=== PATIENT | female | born 1935 | race Caucasian/White ===

== ENCOUNTER 2017-03-28 14:25 | Inpatient (IN) | payer MEDICARE ==
[~2017-03-28] VITALS: Ht 154.9 cm; Wt 50.9 kg
[2017-03-28 15:35] LABS: BASO # 0.1 x10^3/uL (0.0-0.2); BASO % 1 % (0-3); EOS # 0.2 x10^3/uL (0.0-0.7); EOS % 2 % (0-3); HEMATOCRIT 31.1 % (36.0-47.0); HEMOGLOBIN 10.3 g/dL (12.0-15.5); LYMPH # 1.4 x10^3/uL (1.0-4.8); LYMPH % 16 % (24-48); MEAN CORPUSCULAR HEMOGLOBIN 30 pg (25-35); MEAN CORPUSCULAR HGB CONC 33 g/dL (31-37); MEAN CORPUSCULAR VOLUME 92 fL (79-100); MONO # 0.6 x10^3/uL (0.0-1.1); MONO % 7 % (0-9); NEUT # 6.6 x10^3uL (1.8-7.7); NEUT % 75 % (31-73); PLATELET COUNT 208 x10^3/uL (140-400); RED CELL DISTRIBUTION WIDTH 15.3 % (11.5-14.5); WHITE BLOOD COUNT 8.9 x10^3/uL (4.0-11.0)
--- NOTE | 2017-03-28 15:37 | PHYS DOC ---
Past History Past Medical History: A-Fib, CHF, CVA, Hypertension Past Surgical History: Other Alcohol Use: None Drug Use: None Adult General Chief Complaint Chief Complaint: MULTIPLE COMPLAINTS HPI HPI Patient is a 81-year-old female in by family from her [facility] for evaluation of left-sided head pain status post fall. Sounds as if this was a mechanical fall as patient says that they were trying to walk her with the could not keep grasp her and she fell straight forward into a doorway. She has contusion and abrasion to left gnosticist and says that she has pain there were some headache but she denies any neck pain chest pain abdominal pain back pain or extremity pain. Says that she had a tetanus shot 2 years ago. Patient is in the [facility] and she had a stroke 4 weeks ago and has left-sided weakness in addition she had a TIA 2 weeks ago. Patient is very dissatisfied with the care at the [facility]dc she has had and is going to take her home and they are setting up home health. They're mostly concerned with the head trauma and possible intracranial hemorrhage. She was on blood thinners but they say they have since stopped it since she was having a small bleed on her last head CT. Review of Systems Review of Systems Constitutional: Denies fever or chills [] Eyes: Denies change in visual acuity, redness, or eye pain [] HENT: Denies nasal congestion or sore throat [] Respiratory: Denies cough or shortness of breath [] Cardiovascular: No additional information not addressed in HPI [] GI: Denies abdominal pain, nausea, vomiting, bloody stools or diarrhea [] : Denies dysuria or hematuria [] Musculoskeletal: Denies back pain or joint pain [] Integument: + abrasion Neurologic: + headache. No new focal weakness or sensory changes [] Physical Exam Physical Exam Constitutional: Well developed, well nourished, no acute distress, non-toxic appearance. [] HENT: Normocephalic, left gnosticist abrasion and contusion with no open wounds. Eyes: PERRLA, EOMI, conjunctiva normal, no discharge. [] Neck: Normal range of motion, no tenderness, supple, no stridor. [] Cardiovascular:Heart rate regular rhythm, no murmur [] Lungs & Thorax: Bilateral breath sounds clear to auscultation [] Abdomen: Bowel sounds normal, soft, no tenderness, no masses, no pulsatile masses. [] Skin: Warm, dry, no erythema, no rash. [] Back: No tenderness, no CVA tenderness. [] Extremities: No tenderness, no cyanosis, no clubbing, ROM intact, no edema. [] Neurologic: Alert and oriented X 3. Baseline neuro deficits noted, no new deficits per patient and family, Current Patient Data Vital Signs Vital Signs Date Time Temp Pulse Resp B/P (MAP) Pulse Ox O2 Delivery O2 Flow Rate FiO2 03/28/17 15:04 98.8 62 24 2 Room Air EKG EKG Sinus rhythm at 56 beats per minutes with leftward axis no obvious ST elevation but there is inverted T waves in leads 23 aVF and V2 through V6. Radiology/Procedures Radiology/Procedures [] Course & Med Decision Making Course & Med Decision Making Patient reportedly has a history of congestive heart failure and she is slightly hypoxic at 89%. Family reports that she has been on 1-2 L at night past week at the fdc. Patient is hopefully going to go home however I cannot sit up all of her home needs including oxygen so she'll be admitted for further observation and treatment. Does have an elevated BNP so she'll be given a dose of Lasix and she will likely need a repeat head CT tomorrow to make sure that her brain bleeding is not getting worse. I suspect this is unrelated to her trauma as it is the opposite side and it is an intraventricular bleed rather than a subdural hematoma. Patient clinically looks well but she will be admitted for further observation and treatment for these to major medical issues. Dragon Disclaimer Dragon Disclaimer This chart was dictated in whole or in part using Voice Recognition software in a busy, high-work load, and often noisy Emergency Department environment. It may contain unintended and wholly unrecognized errors or omissions. Departure Departure: Impression: Primary Impression: Intraventricular hemorrhage Additional Impressions: CHF exacerbation Periorbital hematoma of left eye Disposition: ADMITTED INPATIENT Admitting Physician: Stacey Burks Condition: STABLE Referrals: CHERELLE HOWARD DO (PCP) Problem Qualifiers TUCKER BETANOCURT DO Mar 28, 2017 15:37
[2017-03-28] MEDS ORDERED: AMLO10TA2 PO (15:48)
[2017-03-28] MEDS ORDERED: ACET325T9 PO (15:48)
[2017-03-28] MEDS ORDERED: PANT40TA3 PO (15:48)
[2017-03-28] MEDS ORDERED: GABA-585 PO (15:48)
[2017-03-28] MEDS ORDERED: BISA10SU2 RC (15:48)
[2017-03-28] MEDS ORDERED: ASPI81TA50 PO (15:48)
[2017-03-28] MEDS ORDERED: ISOS30TA4 PO (15:48)
[2017-03-28] MEDS ORDERED: LOPE2CAP PO (15:48)
[2017-03-28] MEDS ORDERED: METO25TA9 PO (15:48)
[2017-03-28] MEDS ORDERED: CLON0.5T3 PO (15:48)
[2017-03-28 15:53] LABS: ALBUMIN 2.9 g/dL (3.4-5.0); ALBUMIN/GLOBULIN RATIO 0.9 (1.0-1.7); CALCIUM 8.5 mg/dL (8.5-10.1); CREATININE 1.6 mg/dL (0.6-1.0); GFR 30.8; MAGNESIUM 1.6 mg/dL (1.8-2.4); TOTAL BILIRUBIN 0.9 mg/dL (0.2-1.0); TOTAL PROTEIN 6.1 g/dL (6.4-8.2)
--- NOTE | 2017-03-28 15:53 | RAD ---
Exam performed: One view chest. Indication: Shortness of air, fall today Date of Service: 03/28/2017 5:12 PM Comparison: None available. Single AP upright portable view chest findings: Cardiomediastinal silhouette is within upper limits of normal. Abdomen is calcification of the aortic knob. Opacity left lung base obscuring the left hemidiaphragm with streaky linear opacities in the right lung base. The bony structures are normal. Impression: Hazy opacity left lung base obscuring the left hemidiaphragm with streaky right basilar opacity. Findings may be related to infiltrates or atelectasis. Follow-up exams may be of additional benefit.
--- NOTE | 2017-03-28 16:08 | RAD ---
Exam performed: CT head and cervical spine. History: Fall today, bruising over left eye. Date of service: 03/28/17. Comparison: CT head without contrast from 02/23/17 MRI brain on 03/02/17 Technique: Contiguous helical acquisitions are obtained from the foramen magnum to the vertex without IV contrast. In addition helical acquisitions also obtained through the cervical spine. Sagittal and coronal reformatted images are obtained and reviewed. CT head findings: Areas of increased attenuation is seen within the generalized area of low-attenuation in the right subcortical deep white matter. Prominence of cortical sulci and ventricular system is noted consistent with age related atrophy. There are diffuse areas of low-attenuation in both periventricular and subcortical deep white matter. Symmetric bifrontal subdural hygroma. Visualized portions of the orbits, paranasal sinuses and the mastoid air cells are clear. Impression: 1. Age related atrophy. Areas of low-attenuation in both periventricular and subcortical deep white matter suggesting small vessel ischemic changes. 2. Areas of ill-defined hyperattenuation in a generalized area of low-attenuation in the right temporoparietal region. Reportedly patient had a CT scan subsequent to her original CT scan in February at a different facility which demonstrated hemorrhagic transformation of this stroke. Unfortunately that study is not available for comparison and review, however the findings correlate. This does not appear to be acute hemorrhage related to trauma. Follow-up exam may be of additional benefit. Results discussed with Dr. Spann in the ER soon after completion of the study. End impression CT cervical spine findings: Straightening of the cervical curvature. The vertebral body heights are maintained. There is narrowing of C3/4, C5/6 and C6/7 intervertebral disc spaces with mild osteophytic spurring. No acute compression fracture. No prevertebral soft tissue swelling. The airway is preserved. There are no acute fractures. Atheromatous calcification of the left carotid artery is seen. Impression: Spondylotic changes and multilevel degenerative disc disease. No acute abnormality seen. PQRS Compliance Statement: One or more of the following individualized dose reduction techniques were utilized for this examination: 1. Automated exposure control 2. Adjustment of the mA and/or kV according to patient size 3. Use of iterative reconstruction technique
[2017-03-28] MEDS ORDERED: FUROSEMIDE 40 MG/4 ML VIAL IVP ONE (17:00)
[2017-03-28] MEDS ORDERED: ONDANSETRON PF 4 MG/2 ML VIAL. IV PRN (17:00)
--- NOTE | 2017-03-28 17:02 | EKG ---
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
[2017-03-28 19:00] VITALS: BP 149/75
[2017-03-28 22:25] LABS: CLARITY,URINE CLOUDY; COLOR,URINE YELLOW
[2017-03-28 22:27] LABS: BILIRUBIN,URINE NEG (NEG); GLUCOSE,URINE NEG (NEG); UROBILINOGEN,URINE 0.2 mg/dL (0.2 mg/dL)
[2017-03-28 22:28] LABS: NITRITE,URINE NEG (NEG)
[2017-03-28 22:36] LABS: BACTERIA,URINE 0 /HPF (0-FEW); SQUAMOUS EPITHELIAL CELL,UR FEW /LPF; WBC,URINE 20-40 /HPF (0-4)
[2017-03-28 23:00] VITALS: BP 165/77
[2017-03-28] MEDS ORDERED: ACETAMINOPHEN 325 MG TABLET PO PRN (23:15)
[2017-03-29 04:00] VITALS: BP 134/49
[2017-03-29 06:00] VITALS: BP 132/65
--- NOTE | 2017-03-29 06:02 | ACF ---
Admission Criteria Forms HEART FAILURE Clinical Indications for Admission to Inpatient Care (Place 'X' for any and all applicable criteria): Admission to inpatient status for two midnights or more is indicated by ANY ONE of the following(1)(2)(3)(4) [ ]I. Hemodynamic instability [ ]II. Severe electrolyte abnormalities requiring inpatient care(9) [ ]III. Cardiac arrhythmias of immediate concern Anasarca [ ]IV. Precipitating cause for acute decompensation (eg, pneumonia, pulmonary embolism)[ ]V. [ ]V. Acute cardiac ischemia causing or associated with failure (Also use Angina or Myocardial Infarction as appropriate) [ ]. Pulmonary edema that is very severe (eg, mechanical ventilation needed, imminent or likely, need for 100% oxygen to keep oxygen saturation above 90%) [ ]VII. Massive skin edema (anasarca) with complications (eg tissue breakdown with infection, inability to void due to edema) [A] [X]VIII. Inpatient admission required rather than observation care (See Heart Failure: Observation Care as appropriate) because of 1 or more of the following: [ ]a) Pulmonary edema that is severe or worsening as indicated by ALL of the following : [ ]1) New need for oxygen therapy to keep oxygen saturation above 90% (or increased FiO2 need from baseline) [ ]2) Has not improved sufficiently with emergency department or observation care IV diuretics or other heart failure treatments[C] [ ]b) Altered mental status that is severe or persistent [ ]c) Increased creatinine (new on laboratory test) with reduction of more than 50% in estimated glomerular filtration rate from baseline. [ ]d) Progressively (ongoing) rising creatinine (known from past laboratory test) with reduction of more than 25% in estimated glomerular filtration rate from baseline [ ]e) Acute renal insufficiency (progressively (ongoing) rising creatinine (known from past laboratory test) with reduction of more than 25% in estimated glomerular filtration rate from baseline [ ]f) Acute renal failure [ ]g) Acute peripheral ischemia (e.g., examination shows pulseless, cool, mottled, or cyanotic extremity) [X]h) Oyxgen administration or respiratory treatments have been needed for over 24 hours that are performable only in acute inpatient setting [ ]i) Pulmonary artery catheter monitoring [ ]j) Other condition, treatment or monitoring requiring inpatient admission Extended stay beyond goal length of stay may be needed for(1)(3)(21)(25): [ ]a) Cardiac ischemia, confirmed or suspected as precipitant [ ]b) Cardiogenic shock [ ]c) Acute renal failure [ ]d) Stage IV chronic kidney disease (estimated glomerular filteration rate of less than 30 ML/min/1.73m2 (0.50 mL/sec/1.73m2), and not previously on chronic dialysis [ ]e) Respiratory failure (eg, need for noninvasive or invasive mechanical ventilation) (23) [ ]f) Concomitant pneumonia or significant electrolyte abnormality (eg, severe hyponatremia) [ ]g) Newly diagnosed (new onset) atrial fibrillation The original [employer] content created by [employer] has been revised. The portions of the content which have been revised are identified through the use of italic text, and [employer] has neither reviewed nor approved the modified material. All other unmodified content is copyright [employer]. Please see references footnoted in the original [facility] edition 2014 Admission Criteria Met?: Yes JOSEFINA ROYAL Mar 29, 2017 06:02
[2017-03-29 06:13] LABS: BASO # 0.1 x10^3/uL (0.0-0.2); BASO % 1 % (0-3); EOS # 0.4 x10^3/uL (0.0-0.7); EOS % 6 % (0-3); HEMATOCRIT 31.5 % (36.0-47.0); HEMOGLOBIN 10.3 g/dL (12.0-15.5); LYMPH # 1.9 x10^3/uL (1.0-4.8); LYMPH % 27 % (24-48); MEAN CORPUSCULAR HEMOGLOBIN 30 pg (25-35); MEAN CORPUSCULAR HGB CONC 33 g/dL (31-37); MEAN CORPUSCULAR VOLUME 92 fL (79-100); MONO # 0.6 x10^3/uL (0.0-1.1); MONO % 8 % (0-9); NEUT # 4.1 x10^3uL (1.8-7.7); NEUT % 58 % (31-73); PLATELET COUNT 195 x10^3/uL (140-400); RED BLOOD COUNT 3.43 x10^6/uL (3.50-5.40); RED CELL DISTRIBUTION WIDTH 14.9 % (11.5-14.5)
[2017-03-29 06:29] LABS: CALCIUM 8.3 mg/dL (8.5-10.1); CREATININE 1.4 mg/dL (0.6-1.0); GFR 35.9; POTASSIUM 3.8 mmol/L (3.5-5.1)
[2017-03-29 06:59] VITALS: BP 138/59
[2017-03-29] MEDS ORDERED: MAGNESIUM SULFATE 2GM 50 ML IV ONE (08:40)
[2017-03-29] MEDS ORDERED: IV NORMAL SALINE 50ML 50 ML ONE ×2 (08:50→08:51)
[2017-03-29 10:43] VITALS: BP 158/72
--- NOTE | 2017-03-29 11:44 | RAD ---
CT of the head without contrast, 03/29/2017: History: Follow-up hemorrhage Comparison is made to a study 02/23/2017 and 03/28/2017. On the 02/23/2017 study there was an edematous process in the medial right temporal and occipital lobes compatible with edema due to a recent infarct. Yesterday's study demonstrated patchy areas of increased density within this process compatible with interval areas of hemorrhage within this presumed infarct. Today's study is unchanged from yesterday's exam. There is no shift of the midline structures. There are mild patchy deep white matter lucencies compatible with chronic ischemic change. There is moderate cerebral atrophy. No abnormal extra-axial fluid collection is seen. IMPRESSION: 1. Patchy increased density within the right temporal/occipital lobe subacute infarct compatible with hemorrhagic transformation. This is stable compared to yesterday's exam. 2. No new intracranial abnormality is detected. PQRS Compliance Statement: One or more of the following individualized dose reduction techniques were utilized for this examination: 1. Automated exposure control 2. Adjustment of the mA and/or kV according to patient size 3. Use of iterative reconstruction technique
[2017-03-29] MEDS ORDERED: BISACODYL 10 MG SUPP.RECT RC PRN (12:45)
[2017-03-29] MEDS ORDERED: LOPERAMIDE 2 MG CAPSULE PO PRN (12:45)
[2017-03-29] MEDS ORDERED: ISOSORBIDE MONONITRATE ER 30 MG TAB.ER.24H PO SCH (13:00)
[2017-03-29] MEDS ORDERED: amLODIPine BESYLATE 10 MG TABLET PO SCH (13:00)
[2017-03-29] MEDS ORDERED: PANTOPRAZOLE 40 MG TABLET. PO SCH (13:00)
[2017-03-29] MEDS ORDERED: clonazePAM 0.5 MG TABLET PO SCH (13:00)
[2017-03-29] MEDS ORDERED: ASPIRIN ENTERIC COATED 81 MG TABLET.DR. PO SCH (13:00)
[2017-03-29] MEDS ORDERED: METOPROLOL SUCC 24HR ER 25 MG TAB.ER.24H. PO SCH (13:00)
--- NOTE | 2017-03-29 13:18 | RAD ---
Portable chest, 03/29/2017: History: Shortness of breath Comparison is made to a study from 03/28/2017. The heart is mildly enlarged. There is calcific plaquing of the aorta. The pulmonary vascularity is normal. Blunting of the lateral costophrenic angles has worsened slightly, compatible with small pleural effusions, left greater than right. There is mild underlying basilar atelectasis. The upper lung stout are clear. IMPRESSION: 1. Mild cardiomegaly and aortic atherosclerosis. 2. Small pleural effusions, left greater than right.
--- NOTE | 2017-03-29 13:34 | PDOC2 ---
CONSULT Date of Admission DATE: 03/29/17 TIME: 13:30 Reason for Consult: Congestive heart failure. Referring Physician: Ольга Ugalde DO Chief Complaint We were consulted for possible CHF. Source: Chart review, Patient Problem List Problems Medical Problems: (1) CHF exacerbation Status: Acute (2) Intraventricular hemorrhage Status: Acute (3) Periorbital hematoma of left eye Status: Acute History of Present Illness The patient is an 81-year-old female with a history of paroxysmal atrial fibrillation that seems to have been 1st diagnosed in February 2017 when she was at [facility] with a hemorrhagic stroke. It seems that after the stroke she had been discharged to home and then came back a different day for an outpatient transesophageal echocardiogram and cardioversion. It does not seem she has seen Cardiology since that time. She has been residing in a local long term for skilled rehab. Apparently, she had fallen in her room. Somehow her son found out about this incident and thought that the staff dropped his mother. He called 911 and the patient was taken to the emergency room for further evaluation. She was actually supposed to see 1 of my partners in our office in 2 weeks. Because of an elevated BNP level and a question of congestive heart failure, a cardiology consultation was requested. She does not really seem to remember what led up to this particular hospitalization. She knows that she was on a blood thinner in the past but states this caused nausea and the medication was discontinued. She denies chest pain, dyspnea, paroxysmal nocturnal dyspnea, orthopnea, palpitations, lightheadedness, syncope or lower extremity edema Cardiovascular: AFIB, CHF, HTN, hyperipidemia CENTRAL NERVOUS SYSTEM: CVA GI: GERD Family History She does not know of any family history of premature coronary disease. Smoke: No ALCOHOL: none Lives: Long-Term Current Medications Current Medications Ondansetron HCl (Zofran) 4 mg PRN Q4HRS PRN IV NAUSEA/VOMITING Last administered on 03/28/17 17:06; Start 03/28/17 at 17:00; Stop 03/29/17 at 16:59 Furosemide (Lasix) 20 mg 1X ONCE IVP Last administered on 03/28/17 17:04; Start 03/28/17 at 17:00; Stop 03/28/17 at 17:01; Status DC Acetaminophen (Tylenol) 325 mg PRN Q4HRS PRN PO MILD PAIN Last administered on 03/28/17 23:28; Start 03/28/17 at 23:15 Magnesium Sulfate 50 ml @ 25 mls/hr 1X ONCE IV Last administered on 03/29/17 08:54; Start 03/29/17 at 08:40; Stop 03/29/17 at 10:39; Status DC Ceftriaxone Sodium 1 gm/ Sodium Chloride 50 ml @ 100 mls/hr Q24H IV Last administered on 03/29/17 10:55; Start 03/29/17 at 09:00 Sodium Chloride 50 ml @ As Directed STK-MED ONCE .ROUTE Last administered on 08:53; Start 03/29/17 at 08:50; Stop 03/29/17 at 08:51; Status DC Sodium Chloride 50 ml @ As Directed STK-MED ONCE .ROUTE ; Start 03/29/17 at 08: 51; Stop 03/29/17 at 08:52; Status DC Amlodipine Besylate (Norvasc) 10 mg DAILY PO ; Start 03/29/17 at 13:00 Aspirin (Aspirin Enteric Coated) 81 mg DAILY PO ; Start 03/29/17 at 13:00 Bisacodyl (Dulcolax Supp) 10 mg PRN DAILY PRN RC CONSTIPATION; Start 03/29/17 at 12:45 Clonazepam (KlonoPIN) 0.5 mg DAILY PO ; Start 03/29/17 at 13:00 Gabapentin (Neurontin) 100 mg TID PO ; Start 03/29/17 at 14:00 Isosorbide Mononitrate (Imdur) 30 mg DAILY PO ; Start 03/29/17 at 13:00 Loperamide HCl (Imodium) 2 mg PRN Q2HR PRN PO DIARRHEA; Start 03/29/17 at 12:45 Metoprolol Succinate (Toprol Xl) 25 mg DAILY PO ; Start 03/29/17 at 13:00 Pantoprazole Sodium (Protonix) 40 mg DAILY PO ; Start 03/29/17 at 13:00 Active Scripts Active Reported Tylenol (Acetaminophen) 325 Mg Tablet 1 Tab PO PRN Q4HRS Loperamide (Loperamide Hcl) 2 Mg Capsule 2 Mg PO Amlodipine Besylate 10 Mg Tablet 1 Tab PO DAILY Isosorbide Mononitrate Er (Isosorbide Mononitrate) 30 Mg Tab.er.24h 1 Tab PO DAILY Clonazepam 0.5 Mg Tablet 1 Tab PO DAILY Gabapentin 100 Mg Capsule 100 Mg PO TID Protonix (Pantoprazole Sodium) 40 Mg Tablet.dr 1 Tab PO DAILY Metoprolol Succinate ( Xl ) (Metoprolol Succinate) 25 Mg Tab.er.24h 1 Tab PO DAILY Bisacodyl 10 Mg Supp.rect 10 Mg RC PRN DAILY PRN Aspir-Low (Aspirin) 81 Mg Tablet.dr 1 Tab PO DAILY Allergies: Coded Allergies: menthol (Verified Allergy, Intermediate, 03/28/17) methyl salicylate (Verified Allergy, Intermediate, 03/28/17) Review of System Review of 10 organ systems is as per the history of present illness, otherwise negative. However, given her poor recollection of events, the review of systems may not be entirely accurate. General: Alert, Cooperative, No acute distress HEENT: EOMI, Mucous membr. moist/pink, Other (Ecchymoses lateral to the left orbit.) Lungs: Clear to auscultation, Normal air movement Heart: Regular rate, Normal S1, Normal S2, Other ( 2/6 systolic ejection murmur.) Abdomen: Normal bowel sounds, Soft, No tenderness, No hepatospenomegaly Extremities: No clubbing, No cyanosis, No edema, Normal pulses Skin: No rashes, No breakdown Neuro: Normal speech, Cranial nerves 3-12 NL, Other ( Left reinier-neglect. Left -sided weakness involving the upper and lower extremities.) Psych/Mental Status: Mental status NL, Mood NL VITALS Vital Signs Date Time Temp Pulse Resp B/P (MAP) Pulse Ox O2 Delivery O2 Flow Rate FiO2 03/29/17 10:43 59 19 158/72 (100) 98 Room Air 03/29/17 06:00 98.2 2.0 Labs Laboratory Tests Test 03/28/17 15:20 03/28/17 22:15 03/29/17 05:48 White Blood Count 8.9 x10^3/uL (4.0-11.0) 7.0 x10^3/uL (4.0-11.0) Red Blood Count 3.40 x10^6/uL (3.50-5.40) 3.43 x10^6/uL (3.50-5.40) Hemoglobin 10.3 g/dL (12.0-15.5) 10.3 g/dL (12.0-15.5) Hematocrit 31.1 % (36.0-47.0) 31.5 % (36.0-47.0) Mean Corpuscular Volume 92 fL (79-100) 92 fL (79-100) Mean Corpuscular Hemoglobin 30 pg (25-35) 30 pg (25-35) Mean Corpuscular Hemoglobin Concent 33 g/dL (31-37) 33 g/dL (31-37) Red Cell Distribution Width 15.3 % (11.5-14.5) 14.9 % (11.5-14.5) Platelet Count 208 x10^3/uL (140-400) 195 x10^3/uL (140-400) Neutrophils (%) (Auto) 75 % (31-73) 58 % (31-73) Lymphocytes (%) (Auto) 16 % (24-48) 27 % (24-48) Monocytes (%) (Auto) 7 % (0-9) 8 % (0-9) Eosinophils (%) (Auto) 2 % (0-3) 6 % (0-3) Basophils (%) (Auto) 1 % (0-3) 1 % (0-3) Neutrophils # (Auto) 6.6 x10^3uL (1.8-7.7) 4.1 x10^3uL (1.8-7.7) Lymphocytes # (Auto) 1.4 x10^3/uL (1.0-4.8) 1.9 x10^3/uL (1.0-4.8) Monocytes # (Auto) 0.6 x10^3/uL (0.0-1.1) 0.6 x10^3/uL (0.0-1.1) Eosinophils # (Auto) 0.2 x10^3/uL (0.0-0.7) 0.4 x10^3/uL (0.0-0.7) Basophils # (Auto) 0.1 x10^3/uL (0.0-0.2) 0.1 x10^3/uL (0.0-0.2) Prothrombin Time 10.9 SEC (9.4-11.4) Prothromb Time International Ratio 1.1 (0.9-1.1) Activated Partial Thromboplast Time 26 SEC (23-33) Sodium Level 143 mmol/L (136-145) 144 mmol/L (136-145) Potassium Level 4.0 mmol/L (3.5-5.1) 3.8 mmol/L (3.5-5.1) Chloride Level 109 mmol/L (98-107) 109 mmol/L (98-107) Carbon Dioxide Level 25 mmol/L (21-32) 26 mmol/L (21-32) Anion Gap 9 (6-14) 9 (6-14) Blood Urea Nitrogen 20 mg/dL (7-20) 24 mg/dL (7-20) Creatinine 1.6 mg/dL (0.6-1.0) 1.4 mg/dL (0.6-1.0) Estimated GFR (Cockcroft-Gault) 30.8 35.9 BUN/Creatinine Ratio 13 (6-20) Glucose Level 113 mg/dL (70-99) 95 mg/dL (70-99) Calcium Level 8.5 mg/dL (8.5-10.1) 8.3 mg/dL (8.5-10.1) Magnesium Level 1.6 mg/dL (1.8-2.4) Total Bilirubin 0.9 mg/dL (0.2-1.0) Aspartate Amino Transf (AST/SGOT) 17 U/L (15-37) Alanine Aminotransferase (ALT/SGPT) 16 U/L (14-59) Alkaline Phosphatase 57 U/L (46-116) Troponin I Quantitative 0.022 ng/mL (0-0.055) YO-Xzq-Q-Type Natriuretic Peptide 22485 pg/mL (0-449) Total Protein 6.1 g/dL (6.4-8.2) Albumin 2.9 g/dL (3.4-5.0) Albumin/Globulin Ratio 0.9 (1.0-1.7) Urine Collection Type Unknown Urine Color Yellow Urine Clarity Cloudy Urine pH 5.0 Urine Specific [place] 1.010 Urine Protein Neg (NEG-TRACE) Urine Glucose (UA) Neg mg/dL (NEG) Urine Ketones (Stick) Neg mg/dL (NEG) Urine Blood Small (NEG) Urine Nitrite Neg (NEG) Urine Bilirubin Neg (NEG) Urine Urobilinogen Dipstick 0.2 mg/dL (0.2 mg/dL) Urine Leukocyte Esterase Mod (NEG) Urine RBC 3-5 /HPF (0-2) Urine WBC 20-40 /HPF (0-4) Urine Squamous Epithelial Cells Few /LPF Urine Bacteria 0 /HPF (0-FEW) Assessment/Plan CHF, chronic, systolic. Although she has no elevated BNP level, she does not appear to be having overt symptoms of congestive heart failure. Her chest x- ray did not show pulmonary edema. I would just recommend she continue on the present medication although I may make some changes due to her cardiomyopathy. Cardiomyopathy. Exact etiology unclear. Her 1st echocardiogram 1 month ago showed mild left ventricular dysfunction. Her transesophageal echocardiogram 1 month ago showed severe left ventricular dysfunction. We will need to make some adjustments to her medication to help better treat this. However, my understanding is the patient is being discharged to home. We can certainly make these adjustments to her medication after discharge. We may also want to consider an ischemic evaluation down the road. Atrial fibrillation, paroxysmal. Since she has been here in the hospital she has remained in sinus rhythm. Due to her fall risk, she may not be a good candidate for oral anticoagulation. Furthermore, she had a hemorrhagic stroke 1 month ago which also makes oral anticoagulation somewhat risky. For the time being, we will continue aspirin. Essential hypertension. Her blood pressure seem to be controlled. However, due to her cardiomyopathy, we may want to make some adjustments to her medications to help with the cardiomyopathy. Specifically, I would recommend stopping the amlodipine and adding an HANY-inhibitor. We will attempt to coordinate this as an outpatient since I am told by nursing that the patient will be discharged in the very near future later this afternoon. Problems: TUCKER ROWAN Jr, MD Mar 29, 2017 13:34
[2017-03-29 13:35] VITALS: BP 186/86
[2017-03-29 13:38] VITALS: BP 186/86
[2017-03-29] MEDS ORDERED: GABAPENTIN 100 MG CAPSULE. PO SCH (14:00)
--- NOTE | 2017-03-29 16:36 | SSS ---
ADMIT DATE: 03/29/2017 SHORT STAY SUMMARY Stay was greater than 8 hours and less than 24 hours and care was given by myself. DISCHARGE DIAGNOSIS: 1. Status post fall with left periorbital hematoma of the left eye. 2. Status post cerebrovascular accident, initially ischemic and then converted to intracranial hemorrhage. 3. Mild congestive heart failure. 4. Bradycardia. 5. Hypertension. 6. Atrial fibrillation. 7. Chronic systolic congestive heart failure. 8. Cardiomyopathy with severe left ventricular dysfunction. HOSPITAL COURSE: An 81-year-old female who was brought by her family to the Emergency Room from the long-term. Evidently, the family has not been happy with the care there and she has fallen, but she did have a mechanical fall when trying to walk her and she fell forward and hit her head in the left christianity. Extensive workup, she had CAT scans x 2 showing a little area subacute with hemorrhagic transformation, but the patient actually fell on the left side. Family desires to take her home and so brought her to the hospital for medication evaluation as well as oxygen. PAST MEDICAL HISTORY: AFib; CHF; CVA; initially ischemic, now hemorrhagic; hypertension; frequent falls. MEDICATIONS: Reviewed and are available on the MAR. ALLERGIES: MENTHOL and METHYL SALICYLATE. SOCIAL HISTORY: The patient has been at, I believe, [place] since undergoing stroke 4 weeks ago. She has a supportive family. is still living. REVIEW OF SYSTEMS: Positive for pain around the left eye, otherwise negative. OBJECTIVE: VITAL SIGNS: Blood pressure 158/72; pulse 59, pulse has been as low as 50; respirations 20; O2 sat was 92% on room air. GENERAL: Pleasant elderly female, in no acute distress. HEENT: Her pupils were equal, round, react to light. Extraocular muscles are intact. Her nose was patent. Her throat was clear. The head was normocephalic. She has a hematoma on the left side. Periorbital area is somewhat tender, but not too swollen. NECK: Supple. LUNGS: Clear. CARDIOVASCULAR: Regular rhythm and rate. ABDOMEN: Soft, nontender. EXTREMITIES: Without edema. . NEUROLOGIC: The patient has a left hemianopsia. She has a left hemiplegia with some spasticity in both extremities. LABORATORY DATA: Reviewed. She has normochromic normocytic anemia. BNP was 20,000. Chest x-ray, cardiomegaly. PLAN: Discharge to home in the care of her son. Oxygen ordered, medications ordered. I did decrease her atenolol because of a pulse of 50. I did decrease her clonazepam to 0.25 mg because of the increased risk of falling with benzodiazepines. She will follow up with Dr. Taveras in the near future for further medication adjustments. REDD PEACE DO DR: JONA/gaudencio JOB#: [id number] / [id number]
== END 2017-03-29 14:54 | disposition home or self-care (01) | DRG 86 ==
LOC: ER 14:25 → UNDOADMOB 17:03 → ICU 17:03 → OBSVTOIN 03-29 08:09
PROVIDERS: ADMIT Family Medicine; ATTEND Family Medicine
DX: S06.300A Unspecified focal traumatic brain injury without loss of consciousness, initial encounter (principal); I42.9 Cardiomyopathy, unspecified; I50.22 Chronic systolic (congestive) heart failure; I11.0 Hypertensive heart disease with heart failure; G81.94 Hemiplegia, unspecified affecting left nondominant side; H57.8 Other specified disorders of eye and adnexa; R29.6 Repeated falls; I48.0 Paroxysmal atrial fibrillation; K21.9 Gastro-esophageal reflux disease without esophagitis; R00.1 Bradycardia, unspecified; Z91.81 History of falling; Z86.73 Personal history of transient ischemic attack (TIA), and cerebral infarction without residual deficits; W18.39XA Other fall on same level, initial encounter; Y93.89 Activity, other specified; Y92.098 Other place in other non-institutional residence as the place of occurrence of the external cause; Y99.8 Other external cause status
CPT/HCPCS: 36415; 70450; 71010; 72125; 80048; 80053; 81001; 83735; 83880; 84484; 85025; 85610; 85730; 87086; 87641; 93005; 96374; 96375; G0378; G0379; J0696; J1940; J2405; J3475; 99285-25

== ENCOUNTER 2017-04-08 13:00 | Emergency (ER) | payer MEDICARE ==
[~2017-04-08] VITALS: Ht 154.9 cm; Wt 50.8 kg
[~2017-04-08 13:00] MED LIST: ACET325T9 PO; AMLO10TA2 PO; ASPI81TA50 PO; BISA10SU2 RC; CLON0.5T3 PO; GABA-585 PO; ISOS30TA4 PO; LOPE2CAP PO; METO25TA9 PO; PANT40TA3 PO
[2017-04-08] MEDS ORDERED: DEXTROSE 50% 25 GM / 50ML DISP.SYRIN. IV ONE (13:30)
[2017-04-08 13:37] LABS: BASO # 0.1 x10^3/uL (0.0-0.2); BASO % 1 % (0-3); EOS # 0.2 x10^3/uL (0.0-0.7); EOS % 3 % (0-3); HEMATOCRIT 35.5 % (36.0-47.0); HEMOGLOBIN 11.6 g/dL (12.0-15.5); LYMPH # 1.8 x10^3/uL (1.0-4.8); LYMPH % 30 % (24-48); MEAN CORPUSCULAR HEMOGLOBIN 30 pg (25-35); MEAN CORPUSCULAR HGB CONC 33 g/dL (31-37); MEAN CORPUSCULAR VOLUME 91 fL (79-100); MONO # 0.6 x10^3/uL (0.0-1.1); MONO % 10 % (0-9); NEUT # 3.4 x10^3uL (1.8-7.7); NEUT % 55 % (31-73); PLATELET COUNT 261 x10^3/uL (140-400); RED BLOOD COUNT 3.88 x10^6/uL (3.50-5.40); RED CELL DISTRIBUTION WIDTH 15.1 % (11.5-14.5); WHITE BLOOD COUNT 6.1 x10^3/uL (4.0-11.0)
--- NOTE | 2017-04-08 13:42 | RAD ---
Examination: CT head without contrast History: History of stroke protocol. Comparison: 03/26/2017 PQRS Compliance Statement: One or more of the following individualized dose reduction techniques were utilized for this examination: 1. Automated exposure control 2. Adjustment of the mA and/or kV according to patient size 3. Use of iterative reconstruction technique Findings: There is no evidence of midline shift Moderate sized hypodensity identified in the right occipitotemporal region likely known infarct with tiny punctate foci of hyperdensities within the hypodensity likely punctate foci of hemorrhage within the ischemic stroke. Compared to prior exam the hemorrhagic foci within the ischemic stroke are less prominent. The visualized ventricles, appropriate for age. The basal cisterns are uneffaced The visualized paranasal sinuses, mastoid air cells are clear Impression: Moderate sized hypodensity identified in the right occipitotemporal region likely known infarct with tiny punctate foci of hyperdensities within the hypodensity likely punctate foci of hemorrhage within the ischemic stroke. Compared to prior exam , the hemorrhagic foci within the ischemic stroke are less prominent. Results called to ER Physician at time of dictation.
--- NOTE | 2017-04-08 13:44 | EKG ---
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
[2017-04-08 14:12] LABS: ALBUMIN 3.1 g/dL (3.4-5.0); ALBUMIN/GLOBULIN RATIO 0.9 (1.0-1.7); CALCIUM 8.9 mg/dL (8.5-10.1); CREATININE 1.2 mg/dL (0.6-1.0); GFR 42.9; TOTAL BILIRUBIN 0.6 mg/dL (0.2-1.0); TOTAL PROTEIN 6.5 g/dL (6.4-8.2)
[2017-04-08 14:40] LABS: BILIRUBIN,URINE NEG (NEG); CLARITY,URINE CLEAR; COLOR,URINE YELLOW; GLUCOSE,URINE 250 mg/dL (NEG)
[2017-04-08 14:41] LABS: BACTERIA,URINE 0 /HPF (0-FEW); NITRITE,URINE NEG (NEG); SQUAMOUS EPITHELIAL CELL,UR OCC /LPF; UROBILINOGEN,URINE 0.2 mg/dL (0.2 mg/dL); WBC,URINE RARE /HPF (0-4)
[2017-04-08 15:30] VITALS: BP 125/62
--- NOTE | 2017-04-08 15:38 | PHYS DOC ---
Past History Past Medical History: A-Fib, CHF, CVA, Hypertension Past Surgical History: Other Alcohol Use: None Drug Use: None Adult General Chief Complaint Chief Complaint: SLURRED SPEECH HPI HPI Patient is a 81-year-old female brought to the ED by her son and daughter-in- law with the complaint of "out of it, not acting right", slurred speech. They state that sometimes patient seems fine and sometimes she is "out of it". Yesterday she was fine. She wanted to run errands. This morning she was fine. She had been sitting in a chair and began to complain that she didn't feel well. Unclear of exact time of onset of symptoms. They feel that she is not herself, just doesn't seem right. She has had some complaints of visual disturbance. Patient recently had a stroke which caused her to have some right eye visual disturbance. She was in the hospital, then went to rehabilitation, then was in a [facility] briefly but family did not like what was going on there, she had a couple of falls. They got her to live in their home. Patient's son denies any recent starting or stopping medications. The only sedating medication she is on his Klonopin and her last dose was last night at bedtime. No history of a seizure. No fever or chills. She does need very well but no vomiting. PCP Dr. Burks Review of Systems Review of Systems Constitutional: Denies fever or chills [] Eyes: She does have complaints of right eye visual disturbance, unclear whether it is currently both eyes on this presentation Respiratory: Denies cough or shortness of breath [] Cardiovascular: Denies chest pain. She does complain of "rib pain", indicating under her right ribs, but no cardiac sounding pain. GI: Denies abdominal pain, nausea, vomiting, bloody stools or diarrhea [] : Denies dysuria Musculoskeletal: She has chronic shoulder pain and is complaining of that today Integument: Denies rash or skin lesions [] Neurologic: Recent CVA sequelae, difficult to determine whether anything is acute Current Medications Current Medications Current Medications Medications (Trade) Dose Ordered Sig/Guy Start Time Stop Time Status Last Admin Dose Admin Dextrose 25 gm 1X ONCE 04/08/17 13:30 04/08/17 13:31 DC 04/08/17 13:30 25 GM Allergies Allergies Allergies Coded Allergies Type Severity Reaction Last Updated Verified menthol Allergy Intermediate 03/28/17 Yes methyl salicylate Allergy Intermediate 03/28/17 Yes Physical Exam Physical Exam Constitutional: Well developed, well nourished, no acute distress, non-toxic appearance. Afebrile. She has her eyes closed but opens them to voice, appears alert at that point, appears to be mentating relatively normally. She is not lethargic or slow. Her speech is not slurred on my evaluation. HENT: Normocephalic, atraumatic, bilateral external ears normal, oropharynx moist, no oral exudates, nose normal. [] Eyes: conjunctiva normal, no discharge. [] Neck: Normal range of motion, no stridor. [] Cardiovascular:Heart rate regular rhythm, no murmur [] Lungs & Thorax: Bilateral breath sounds clear to auscultation [] Abdomen: Bowel sounds normal, soft, no tenderness, no masses, no pulsatile masses. [] Skin: Warm, dry, no erythema, no rash. [] Extremities: No tenderness, no cyanosis, no clubbing, ROM intact, no edema. [] Neurologic: Alert and oriented X 3, normal motor function, normal sensory function, no focal deficits noted. [] Current Patient Data Lab Results Laboratory Tests Test 04/08/17 13:20 04/08/17 13:23 04/08/17 13:50 04/08/17 14:20 White Blood Count 6.1 x10^3/uL (4.0-11.0) Red Blood Count 3.88 x10^6/uL (3.50-5.40) Hemoglobin 11.6 g/dL (12.0-15.5) L Hematocrit 35.5 % (36.0-47.0) L Mean Corpuscular Volume 91 fL (79-100) Mean Corpuscular Hemoglobin 30 pg (25-35) Mean Corpuscular Hemoglobin Concent 33 g/dL (31-37) Red Cell Distribution Width 15.1 % (11.5-14.5) H Platelet Count 261 x10^3/uL (140-400) Neutrophils (%) (Auto) 55 % (31-73) Lymphocytes (%) (Auto) 30 % (24-48) Monocytes (%) (Auto) 10 % (0-9) H Eosinophils (%) (Auto) 3 % (0-3) Basophils (%) (Auto) 1 % (0-3) Neutrophils # (Auto) 3.4 x10^3uL (1.8-7.7) Lymphocytes # (Auto) 1.8 x10^3/uL (1.0-4.8) Monocytes # (Auto) 0.6 x10^3/uL (0.0-1.1) Eosinophils # (Auto) 0.2 x10^3/uL (0.0-0.7) Basophils # (Auto) 0.1 x10^3/uL (0.0-0.2) Sodium Level 140 mmol/L (136-145) Potassium Level 4.0 mmol/L (3.5-5.1) Chloride Level 105 mmol/L (98-107) Carbon Dioxide Level 27 mmol/L (21-32) Anion Gap 8 (6-14) Blood Urea Nitrogen 25 mg/dL (7-20) H Creatinine 1.2 mg/dL (0.6-1.0) H Estimated GFR (Cockcroft-Gault) 42.9 BUN/Creatinine Ratio 21 (6-20) H Glucose Level 121 mg/dL (70-99) H Calcium Level 8.9 mg/dL (8.5-10.1) Total Bilirubin 0.6 mg/dL (0.2-1.0) Aspartate Amino Transferase (AST) 19 U/L (15-37) Alanine Aminotransferase (ALT) 13 U/L (14-59) L Alkaline Phosphatase 59 U/L (46-116) Creatine Kinase 41 U/L (26-192) Creatine Kinase MB (Mass) 0.5 ng/mL (0.0-3.6) Creatine Kinase MB Relative Index 1.2 % (0-4) Troponin I Quantitative 0.018 ng/mL (0-0.055) Total Protein 6.5 g/dL (6.4-8.2) Albumin 3.1 g/dL (3.4-5.0) L Albumin/Globulin Ratio 0.9 (1.0-1.7) L Glucose (Fingerstick) 41 mg/dL (70-99) L Prothrombin Time 10.5 SEC (9.4-11.4) Prothrombin Time INR 1.0 (0.9-1.1) PTT 25 SEC (23-33) Urine Collection Type U cath Urine Color Yellow Urine Clarity Clear Urine pH 5.5 Urine Specific [place] 1.020 Urine Protein Neg (NEG-TRACE) Urine Glucose (UA) 250 mg/dL (NEG) Urine Ketones (Stick) Neg mg/dL (NEG) Urine Blood Neg (NEG) Urine Nitrite Neg (NEG) Urine Bilirubin Neg (NEG) Urine Urobilinogen Dipstick 0.2 mg/dL (0.2 mg/dL) Urine Leukocyte Esterase Neg (NEG) Urine RBC 1-2 /HPF (0-2) Urine WBC Rare /HPF (0-4) Urine Squamous Epithelial Cells Occ /LPF Urine Bacteria 0 /HPF (0-FEW) EKG EKG 12-lead EKG read by me. Sinus bradycardia. Heart rate 56. There is poor R-wave progression across the precordium. There is T-wave inversion in V5 and V6. There is 1 PVC. EKG was compared to previous EKG dated 03/28/17, and it is unchanged. No EKG changes. No STEMI. Sinus bradycardia. 1309 Radiology/Procedures Radiology/Procedures CT scan of the head read by the radiologist who called me with the report. There are no acute abnormalities. Obviously diagnosed infarct is again noticed. The previously noted tiny bleeds within the ischemic stroke have decreased in number and size. There is no acute abnormality.[] Course & Med Decision Making Course & Med Decision Making Pertinent Labs and Imaging studies reviewed. (See chart for details) 81-year-old female presents with family with the complaint of altered mental status, out of it, not acting right. Although there was a complaint of slurred speech, I do not believe the patient demonstrated slurred speech in the emergency department. No focal findings in the emergency department. Her complaints and presentation seems more consistent with a toxic/metabolic type of alteration. I do not see any clinical evidence of acute stroke. Additionally , she would not eat a candidate for TPA since she has recently had an ischemic stroke with bleed. I discussed with the patient and her family that we will evaluate her alteration. Patient at times makes appropriate statements like "can you put a pillow under my right shoulder" and "I can't hear thing she is saying" but at times she seems to be sleepy and not engaged. Labs were compared to previous labs and there are no acute findings. Catheter UA is negative for UTI. After history, exam, ED evaluation, re-evaluation and further discussion with the family, review of old charts, I am not able to determine to what extent the patient is actually altered from her baseline, but her family does feel that she is altered. I am also not able to identify a cause for the alteration. There has been no recent starting or stopping of medications. She has not had any sedating medications today. I don't believe she has had an acute ischemic stroke, although she would not meet TPA criteria if she had, because she has recently had a subacute ischemic stroke with hemorrhagic foci. I discussed the case with Dr. Vazquez, taking calls at [facility] today. He believes that the patient may benefit from neurology consultation, may need an MRI, which are not available here. He recommended transfer the patient to [facility]. I discussed the case with Dr. Adkins, hospitalist at [facility]. He will accept the patient. I discussed this plan with the family who is agreeable. I completed transfer paperwork. [] Dragon Disclaimer Dragon Disclaimer This chart was dictated in whole or in part using Voice Recognition software in a busy, high-work load, and often noisy Emergency Department environment. It may contain unintended and wholly unrecognized errors or omissions. Departure Departure: Impression: Primary Impression: Altered level of consciousness Disposition: 02 XFER SHT-TRM HOSP Condition: STABLE Referrals: CHERELLE HOWARD DO (PCP) KALIE SALCIDO MD Apr 08, 2017 15:38
== END 2017-04-08 17:12 | disposition short-term general hospital (02) ==
LOC: ER 13:00
DX: R41.82 Altered mental status, unspecified (principal); H53.8 Other visual disturbances; G89.29 Other chronic pain; I48.91 Unspecified atrial fibrillation; I11.0 Hypertensive heart disease with heart failure; I50.9 Heart failure, unspecified; Z86.73 Personal history of transient ischemic attack (TIA), and cerebral infarction without residual deficits; Z88.8 Allergy status to other drugs, medicaments and biological substances
CPT/HCPCS: 36415; 70450; 80053; 81001; 82553; 82947; 84484; 85025; 85610; 85730; 93005; 96374; 99285-25